=== PATIENT | male | born 1935 | race Caucasian/White ===

== ENCOUNTER → 2024-08-01 13:10 | Outpatient (REF) | payer OTHER, SELFPAY | LOC: RAD 13:10 | PROVIDERS: ATTENDING PHYSICIAN Student in an Organized Health Care Education/Training Program | DX: R20.9 Unspecified disturbances of skin sensation (principal) | CPT/HCPCS: 93922; 93925 ==

== ENCOUNTER 2024-10-02 16:51 | Emergency (ER) | payer OTHER, SELFPAY ==
[2024-10-02] VITALS (9 sets, daily range): BP systolic 147–191; BP diastolic 73–98; PULSE 68–78; BMI 15.2
--- NOTE | 2024-10-02 17:04 | ED.GENMED ---
History of Present Illness
General
Chief Complaint: Fall
Source: patient and ambulance crew
Exam Limitations: none
Time Seen by Provider: 10/02/24 16:53
Nursing documentation reviewed up to this point in time: agreed with
History of Present Illness
History of Present Illness:
89 yo male from home hx CAD, HTN, HLD, NM, states his sister [place] up from the train [place] and took him to her home. He stumbled and fell by his pool, his sister was close by there, had turned and when she turned back around saw him face down
on the ground. She told EMS pt was awake when she arrived. Pt does not recall falling. He remembers standing at the pool side and then his sister calling his name. He denies H/A, lightheaded or dizziness prior to fall. He denies H/A, neck or back
pain, Denies n/v/d/c. He has laceration to nose and mild right side nosebleed. He has had a cough.
Past History
Past History
ED Past Medical History: CAD, HTN, Hypercholesterolemia, NIDDM and NM
ED Past Surgical History: Urological (Bladder cancer resection)
Social History
Tobacco: Former smoker
Alcohol: Daily (wine with lunch and dinner)
Drug: None
Living: with family
Review of Systems
Review of Systems
Allergies reviewed?: Yes
All Other Systems: ROS reviewed and negative except as documented in HPI and ROS
Constitutional: Denies fever, fatigue or chills
EENT: Denies sore throat
Respiratory: Denies trouble breathing
Cardiac: Reports syncope; Denies chest pain or palpitations
ABD/GI: Denies abdominal pain, nausea, vomiting, diarrhea or anorexia
: Denies dysuria, frequency, difficulty voiding or urgency
Musculoskeletal: Reports other (right shoulder pain); Denies neck pain or back pain
Skin: Reports other (cut on nose)
Neurological: Denies dizzy, headache, weakness or numbness
Phy Exam
Physical Exam
Physical Exam:
GENERAL: No acute distress. A&Ox3.
CONSTITUTIONAL: Afebrile.
EYES: clear, conjunctivae normal
ENMT: moist mucus membranes, Pharynx nl, traumatic epistaxis bilaterally, bleeding has stopped
RESPIRATORY: Regular respirations, nonlabored, lungs clear.
CARDIOVASCULAR: Regular rate and rhythm, no murmurs, no rubs.
GI: Soft, nontender, normal BS
MUSCULOSKELETAL: Neck and back nontender, no spinal bony tenderness. Mild tenderness right shoulder, full ROM. All other extremities nontender. Moves with ease. Well perfused.
SKIN: Warm, dry, pink, laceration on nose
PSYCH: Normal mood and affect. Well kept, interactive and appropriate
NEUROLOGIC: Awake, alert and oriented. Speech clear. Cranial nerves II through XII intact. [id number] intact. No focal neurological deficits
Course
Orders/Labs/Results
Orders:
Orders
10/02/24 17:03
CMP [Comprehensive Metabolic Panel] Urgent
Complete Blood Count/With Diff Urgent
10/02/24 17:15
Electrocardiogram (*1) Urgent
Reason for Study: Syncope
EKG- Treatment ONCE
10/02/24 17:17
Lidocaine/Epinephrine/Tetracai [Let Topical Anesthetic Gel] 3 ml TOPICAL NOW STA
10/02/24 18:56
CR Chest - 2 Views Urgent
Comment:
Reason For Exam: cough, syncopal episode
Shoulder, Right, Trauma [CR Shoulder, Trauma - Right] Urgent
Comment:
Reason For Exam: pain after fall
10/02/24 19:07
COVID-19 Antigen Urgent
Source: Nasal Swab
10/02/24 19:35
CT Head W/o Iv Contrast Urgent
Comment:
Reason For Exam: syncopal episode
10/02/24 20:37
Orthostatic VS- Treatment ONCE
10/02/24 21:07
Tetanus/Diphth/Acelpertussis [Adacel] 0.5 ml IM .ONCE ONE
Abnormal Lab Results
10/02/24
17:03
RBC 4.32 L 10^6/uL
(4.70-6.10)
MCH 31.9 H pg
(27.0-31.0)
Glucose 144 H mg/dl
(70-99)
10/02/24 17:03
10/02/24 17:03
Vital Signs
Initial and Last Documented VS:
Initial Vital Signs
Temp Pulse Resp Pulse Ox
97.4 F 86 18 98
10/02/24 16:52 10/02/24 16:52 10/02/24 16:52 10/02/24 16:52
Last Documented Vital Signs
Temp Pulse Resp BP Pulse Ox
97.4 F 74 18 154/73 95
10/02/24 16:52 10/02/24 21:15 10/02/24 16:52 10/02/24 21:00 10/02/24 21:15
Hospital Admissions Officer consulted with Physician
Hospital Admissions Officer consulted with physician?: Yes
Name of Physician Consulted: Quiana
Procedures
Laceration Closure
middle of nose:
Status of Wound: clean
Size of Wound in cm: 1
Description of Wound Edges: sharp
Preparation: cleaned with saline
Anesthesia: Topical-LET
Revision/Debridement: routine- no revision
Type of Closure: Dermabond-skin glue (reinforced with skin adhesive and steristrips)
MDM/Problems Addressed
Differential Diagnosis Includes:
dysrhythmia, dehydration, Covid, brain bleed
MDM/Problems Addressed:
89 yo male from home hx CAD, HTN, HLD, NM, states his sister picked him up from the train station and took him to her home. He stumbled and fell by his pool, his sister was close by there, had turned and when she turned back around saw him face down
on the ground. She told EMS pt was awake when she arrived. Pt does not recall falling. He remembers standing at the pool side and then his sister calling his name. He denies H/A, lightheaded or dizziness prior to fall. He denies H/A, neck or back
pain, Denies n/v/d/c. He has laceration to nose and mild right side nosebleed. He has had a cough.
Alert and oriented x 3, no focal neuro deficits
6:30 PM:
CBC normal
CMP normal
EKG NSR
7:30 p.m.
Covid neg
R shoulder xray read by this examiner: no acute bony abnormality
CXR: radiology report read: NAD
Case discussed with Dr. Araya
8:[address] radiology report read: No acute abnormality
Orthostatics negative.
Pt OOB and ambulating with steady gait.
Stable for discharge
*Critical Care Note
Total Time (30-74mins, 75-104mins- exclusive of procedures): Not Applicable
ED Attending Note
-
Portions of this chart may have been created with voice recognition software.� Occasional wrong word or��sound alike� substitutions may have occurred due to the inherent limitations of voice recognition software.
Discharge Plan
Departure
Patient Disposition: Home (Routine Discharge)
Date of Disposition: 10/02/24
Time of Disposition: 21:01
Patient with high blood pressure during this ER visit?: No
Condition: Good
Covid-19: Negative COVID-19
Discharge Problem:
Episode of syncope, Laceration of nose, Epistaxis due to trauma, Contusion of right shoulder
Instructions: Head Injury in Adults (DC), Contusion (DC), Nosebleeds ED, Wound Glue on the Head/Face
Prescriptions:
No Action
aspirin 325 MG tablet
81 mg PO DAILY
nitroglycerin 0.4 MG tablet, sublingual
0.4 mg sublingual [id number] PRN (Reason: chest pain)
metoprolol tartrate 25 MG tablet
25 mg PO BID
Metformin 500 MG
500 mg PO BID
multivitamin 1 EACH tablet
1 tab PO DAILY
Lipitor
1 tab PO DAILY
Referrals:
Mitch Turner MD [Family Provider] - Follow up in 2-3 days
UNKNOWN - PT DOES,NOT KNOW [Unknown Provider] -
Activity Restrictions/Additional Instructions:
As we discussed, you may briefly wet the steri strips in the shower, then pat them dry. Allow them to fall off by themselves. If they have not fallen off by 5 days, you may remove them.
Your workup here today shows nothing worrisome.
Seek medical care immediately for feeling faint, chest pain, vomiting, confusion or feeling sicker in any way.
Interventions
Interventions:
*Risk Screen - Suicide Last Done: 10/02/24 16:58
*General Assessment Last Done: 10/02/24 16:58
*Neglect/Abuse Screening Last Done: 10/02/24 16:58
*ED- Fall Risk Assessment Last Done: 10/02/24 17:48
*ED COVID-19 Vaccine History Last Done: 10/02/24 16:52
*Nursing Disposition Last Done: 10/02/24 21:31
ED-Musculoskeletal Assessment Last Done: 10/02/24 16:52
ED- Neurological Assessment Last Done: 10/02/24 16:52
ED-Skin Assessment Last Done: 10/02/24 16:52
Discharge Date and Time
Discharge Date/Time: 10/02/24 21:31
Print Language: EMIRATI
[2024-10-02 17:10] LABS: % Basophils 0.3 % (0-2); % Eosinophils 1.6 % (0-6); % Immature Granulocytes 0.3 % (0-0.5); % Lymphocytes 26.1 % (20.5-51.1); % Monocytes 5.7 % (1.7-9.3); Absolute Eosinophils 0.1 10^3/uL (0-0.7); Absolute Lymphocytes 2.1 10^3/uL (1.2-3.4); Absolute Monocytes 0.5 10^3/uL (0.1-0.6); Absolute Neutrophils 5.2 10^3/uL (1.4-6.5); Hematocrit 39.9 % (39.0-52.0); Hemoglobin 13.8 g/dL (13.0-18.0); Mean Corp Hgb Conc. 34.6 g/dL (33.0-37.0); Mean Corpuscular Hgb 31.9 pg (27.0-31.0); Mean Corpuscular Volume 92.4 fL (80.0-94.0); Mean Platelet Volume 9.7 fL (7.4-10.4); Nucleated Red Blood Cells % 0 % (-); Platelet Count 192 10^3/uL (130-400); Red Blood Cell Count 4.32 10^6/uL (4.70-6.10); Red Cell Dist. Width 13.6 % (11.5-14.5); White Blood Cell Count 7.9 10^3/uL (4.8-10.8)
[2024-10-02] MEDS: LET TOPICAL ANESTHETIC GEL 3 ML TOPICAL (17:19)
[2024-10-02 17:21] LABS: ALT (SGPT) 20 U/L (0-50); AST (SGOT) 36 U/L (17-59); Albumin 4.3 g/dl (3.5-5.0); Alkaline Phosphatase 81 U/L (38-126); Blood Urea Nitrogen 20 mg/dl (9-20); Calcium 9.5 mg/dl (8.4-10.2); Carbon Dioxide 23 mmol/L (22-30); Chloride 102 mmol/L (98-107); Estimated Creatinine Clearance 35 ml/min; Glucose 144 mg/dl (70-99); Potassium 4.6 mmol/L (3.5-5.1); Sodium 138 mmol/L (135-145); Total Protein 7.9 g/dl (6.3-8.2); eGFR > 60.00
[2024-10-02 19:27] LABS: COVID-19 Antigen Negative (Negative)
[2024-10-02] MEDS: ADACEL 0.5 ML IM (21:17)
== END 2024-10-02 21:31 | disposition home or self-care (01) ==
LOC: EMR 16:51
PROVIDERS: Registered Nurse; EMERGENCY PHYSICIAN Emergency Medicine; FAMILY PHYSICIAN Internal Medicine
DX: S01.21XA Laceration without foreign body of nose, initial encounter (principal); S40.011A Contusion of right shoulder, initial encounter; R04.0 Epistaxis; W01.0XXA Fall on same level from slipping, tripping and stumbling without subsequent striking against object, initial encounter; I10 Essential (primary) hypertension; I25.10 Atherosclerotic heart disease of native coronary artery without angina pectoris; E78.00 Pure hypercholesterolemia, unspecified; Z87.891 Personal history of nicotine dependence; Z11.52 Encounter for screening for COVID-19; Z23 Encounter for immunization
CPT/HCPCS: 99285; 90471; 12011; 70450; 71046; 73030; 80053; 85025; 87811; 90715; 93005

== ENCOUNTER 2025-07-01 14:49 | Emergency (ER) | payer OTHER, SELFPAY ==
[2025-07-01 15:09] VITALS: BP 212/100
[2025-07-01 15:49] LABS: Urine Character Clear (Clear)
[2025-07-01 15:56] LABS: Urine White Cell 0-2 /HPF (0-5)
[2025-07-01 16:03] LABS: ALT (SGPT) 27 U/L (0-50); AST (SGOT) 38 U/L (17-59); Albumin 4.7 g/dl (3.5-5.0); Alkaline Phosphatase 56 U/L (38-126); Blood Urea Nitrogen 15 mg/dl (9-20); Calcium 9.1 mg/dl (8.4-10.2); Carbon Dioxide 25 mmol/L (22-30); Chloride 103 mmol/L (98-107); Glucose 96 mg/dl (70-99); Potassium 4.8 mmol/L (3.5-5.1); Sodium 136 mmol/L (135-145); Total Protein 8.4 g/dl (6.3-8.2); eGFR > 60.00
[2025-07-01 16:06] LABS: COVID-19 Antigen Negative (Negative)
[2025-07-01 16:11] LABS: Hematocrit 40.2 % (39.0-52.0); Hemoglobin 13.4 g/dL (13.0-18.0); Mean Corp Hgb Conc. 33.3 g/dL (33.0-37.0); Mean Corpuscular Volume 92.8 fL (80.0-94.0); Nucleated Red Blood Cells % 0 % (-); Platelet Count 165 10^3/uL (130-400); Red Cell Dist. Width 13.6 % (11.5-14.5)
--- NOTE | 2025-07-01 19:42 | ED.GENMED ---
History of Present Illness
General
Chief Complaint: Change in Mental Status
Source: patient
Exam Limitations: none
Time Seen by Provider: 07/01/25 19:34
History of Present Illness
History of Present Illness:
89-year-old male complaining of episodes of confusion. This been going on for weeks. He states is mostly an episode of forgetfulness. No focal weakness numbness tingling no headache no double vision speech issues gait issues. Patient feels great
otherwise. He walks frequently. He does not notice these episodes are becoming more frequent.
Past History
Past History
ED Past Medical History: CAD, HTN, Hypercholesterolemia, NIDDM and [place]
ED Past Surgical History: Urological (Bladder cancer resection)
Social History
Tobacco: Former smoker
Alcohol: Daily (wine with lunch and dinner)
Drug: None
Living: with family
Employment: Retired
Review of Systems
Review of Systems
All Other Systems: Not applicable
Constitutional: Denies fever
Respiratory: Reports no symptoms
Cardiac: Reports no symptoms
ABD/GI: Reports no symptoms
Phy Exam
Physical Exam
Physical Exam:
GENERAL: Alert and oriented in no apparent distress. Patient very active alert vibrant
EYE: Orbits normal.
NECK: Supple, no carotid bruit
ENT: Pharynx without erythema
CARDIAC: Regular rate and rhythm without any obvious murmurs.
LUNGS: Clear breath sounds,normal
ABDOMEN: Soft, without focal tenderness or distention
NEUROLOGICAL: Alert and oriented , speech normal. Fully awake and alert and oriented x 3. Cranial nerves II through XII intact. Gait normal.
SKIN: Warm and dry, no rash or lesion, no discoloration, skin intact.
MUSCULOSKELETAL: No edema,no deformity.Good color
PSYCH: Normal and appropriate interaction.
Course
Orders/Labs/Results
Orders:
Orders
07/01/25 15:23
Complete Blood Count/With Diff Urgent
Comprehensive Metabolic Panel Urgent
Influenza A+B Rapid Molecular Urgent
KENNETH Source: Nasal Swab
Specimen Description:
Date Specimen was Collected: 07/01/25
Time Specimen was Collected: 15:13
07/01/25 15:24
COVID-19 Antigen Urgent
Source: Nasal Swab
Urinalysis Reflex To Culture Urgent
Date Specimen was Collected: 07/01/25
Time Specimen was Collected: 15:13
Urine Microscopic Reflex Cult Urgent
07/01/25 19:42
CT Head W/o Iv Contrast Urgent
Comment:
Reason For Exam: Change in mental status
07/01/25 19:44
Electrocardiogram (*1) Stat
Reason for Study: Other
Other Reason for Exam: neuro symptoms
EKG- Treatment ONCE
Abnormal Lab Results
07/01/25 07/01/25
15:23 15:24
RBC 4.33 L 10^6/uL
(4.70-6.10)
MPV 10.5 H fL
(7.4-10.4)
Total Protein 8.4 H g/dl
(6.3-8.2)
Ur Occult Blood Reflex 1+ A
(Negative)
Urine RBC 3-6 A /HPF
(0-2)
Urine Bacteria (Reflex) Few A
(Negative)
Urine Albumin (Reflex) 2+ A
(Neg - Trace)
07/01/25 15:23
07/01/25 15:23
Vital Signs
Initial and Last Documented VS:
Initial Vital Signs
Temp Pulse Resp BP Pulse Ox
98.1 F 75 20 212/100 98
07/01/25 15:09 07/01/25 15:09 07/01/25 15:09 07/01/25 15:09 07/01/25 15:09
Last Documented Vital Signs
Temp Pulse Resp BP Pulse Ox
98.1 F 72 18 145/80 96
07/01/25 15:09 07/01/25 21:18 07/01/25 20:15 07/01/25 20:00 07/01/25 21:18
MDM/Problems Addressed
Differential Diagnosis Includes:
Patient describing occasional cognitive issues. Nothing to support an acute CVA or unstable TIA. His exam is unremarkable. These issues have been going on for weeks. No progression of symptoms. Labs are normal. Testing so far is negative. We
will get a CT of the head and EKG.
*Radiology
Radiology exam reviewed: radiology read reviewed (Negative)
*Pulse Oximetry
SaO2: 98
Oxygen Mode of Delivery: Room air
Patient hypoxic: no
*EKG
Interpreted by ED Provider?: Yes
Interpretation: normal
Comparison EKG: no changes
Heart Rate: 60
Rate: normal
Rhythm: sinus
Secretary: normal axis
Interval: normal interval
QRS Pattern: normal QRS
Ischemia: non-specific ST changes
*Critical Care Note
Total Time (30-74mins, 75-104mins- exclusive of procedures): Not Applicable
Data Reviewed
Review of Other/Old Records Reveals: Labs, Records and Testing
Update Note
Update Note:
No serious explanation for patient's episodic confusion. Clinically stable. Fully awake alert and oriented. Feel patient is safe at home for follow-up. He is also comfortable with this approach
ED Attending Note
-
Portions of this chart may have been created with voice recognition software.� Occasional wrong word or��sound alike� substitutions may have occurred due to the inherent limitations of voice recognition software.
Discharge Plan
Departure
Patient Disposition: Home (Routine Discharge)
Date of Disposition: 07/01/25
Time of Disposition: 21:07
Patient with high blood pressure during this ER visit?: Yes
Discharge Problem:
Episodic confusion
Instructions: Altered Mental Status (DC), BLOOD PRESSURE
Prescriptions:
No Action
aspirin 325 MG tablet
81 mg PO DAILY
nitroglycerin 0.4 MG tablet, sublingual
0.4 mg sublingual [id number] PRN (Reason: chest pain)
metoprolol tartrate 25 MG tablet
25 mg PO BID
Metformin 500 MG
500 mg PO BID
multivitamin 1 EACH tablet
1 tab PO DAILY
Lipitor
1 tab PO DAILY
Referrals:
NONE,* [Family Provider, Internal Medicine]
Activity Restrictions/Additional Instructions:
Call your physician for close follow-up
Interventions
Interventions:
*General Assessment Last Done: 07/01/25 15:09
*Neglect/Abuse Screening Last Done: 07/01/25 15:09
*ED COVID-19 Vaccine History Last Done: 07/01/25 19:49
*ED Influenza Vaccine History Last Done: 07/01/25 19:49
[facility] Fall Risk Assessment Tool Last Done: 07/01/25 19:49
*Risk Screen - Suicide (C-SSRS) Last Done: 07/01/25 15:09
*Nursing Disposition Last Done: 07/01/25 21:18
ED- Pulmonary Assessment Last Done: 07/01/25 19:49
ED- Neurological Assessment Last Done: 07/01/25 19:49
ED Swallowing Screen Last Done: 07/01/25 21:00
Discharge Date and Time
Discharge Date/Time: 07/01/25 21:18
Print Language: ECUADORE[place]
[2025-07-01 19:44] VITALS: BP 132/81
[2025-07-01 19:49] VITALS: BMI 18.0
[2025-07-01 20:00] VITALS: BP 145/80
== END 2025-07-01 21:18 | disposition home or self-care (01) ==
LOC: EMR 14:49
PROVIDERS: Emergency Medicine; EMERGENCY PHYSICIAN Emergency Medicine
DX: R41.0 Disorientation, unspecified (principal); Z11.52 Encounter for screening for COVID-19; I25.10 Atherosclerotic heart disease of native coronary artery without angina pectoris; I10 Essential (primary) hypertension; E78.00 Pure hypercholesterolemia, unspecified; E11.9 Type 2 diabetes mellitus without complications; I25.2 Old myocardial infarction; Z87.891 Personal history of nicotine dependence; Z85.51 Personal history of malignant neoplasm of bladder; Z88.5 Allergy status to narcotic agent
CPT/HCPCS: 99284; 70450; 80053; 81003; 81015; 85025; 87502; 87811; 93005